=== PATIENT | male | born 1940 | race Caucasian/White ===

== ENCOUNTER 2017-06-30 13:01 | Emergency (ER) | payer MEDICARE ==
[2017-06-30 13:43] VITALS: BP 137/62
--- NOTE | 2017-07-06 09:45 | UC ---
Robb Hayden Angela, scribed for Nereida Vizcaino MD on 06/30/17 at 1349 . Ear Complaint HPI - HPI Summary HPI Summary: This pt is a 76 y/o male accompanied by his c/o decreased hearing from both ears progressively worse x several days. Has baseline hx [place] and tinnitus , but he reports that this feels more c/w obstruction. Pt reports he believes he has cerumen in his ears and would like his ears to be flushed. He additionally c/o post nasal drip. Pt's criminal justice lawyer is Dr. Cobb. PCP: Dr. Hannon. PMHx: diabetes, HTN, afib. - History of Current Complaint Chief Complaint: UCEar Stated Complaint: PLUGGED EARS Time Seen by Provider: 06/30/17 13:34 Hx Obtained From: Patient Onset/Duration: Lasting Days Aggravating Factors: Other - cerumen - Allergies/Home Medications Allergies/Adverse Reactions: Allergies Allergy/AdvReac Type Severity Reaction Status Date / Time No Known Allergies Allergy Verified 06/30/17 13:43 Home Medications: Home Medications Metolazone 1 tab PO DAILY 06/30/17 [History Confirmed 06/30/17] PMH/Surg Hx/FS Hx/Imm Hx Previously Healthy: No Endocrine History: Diabetes Cardiovascular History: Hypertension, Other Other Cardiovascular History: Atrial fibrillation - Surgical History Surgical History: Yes Surgery Procedure, Year, and Place: R Hip replacement - Family History Known Family History: Positive: Cardiac Disease - father: CHF. Brother: [place], Hypertension, Diabetes - Mother - Social History Alcohol Use: None Substance Use Type: None Smoking Status (MU): Former Smoker - Immunization History Most Recent Influenza Vaccination: July 2016 Most Recent Tetanus Shot: unknown Most Recent Pneumonia Vaccination: In the past Review of Systems Constitutional: Negative Skin: Negative Eyes: Negative ENT: Other - decreased hearing of bilateral ears Respiratory: Negative - none new Cardiovascular: Negative - none new Gastrointestinal: Negative - no new issues from usual Motor: Negative Neurovascular: Negative Musculoskeletal: Negative, Arthralgia Neurological: Negative Psychological: Negative All Other Systems Reviewed And Are Negative: Yes Physical Exam Triage Information Reviewed: Yes Appearance: Well-Nourished, Obese Vital Signs: Initial Vital Signs Temp 97.7 F 06/30/17 13:37 Pulse 78 06/30/17 13:37 Resp 20 06/30/17 13:37 BP 137/62 06/30/17 13:37 Pulse Ox 96 06/30/17 13:37 Vital Signs Reviewed: Yes Eye Exam: Normal ENT: Positive: Other: - impacted cerumen in bilateral ears. Neck: Positive: Supple - supple for age Respiratory Exam: Normal Respiratory: Positive: Chest non-tender, Lungs clear, Normal breath sounds - poor full insp effort but bs clear as audible, No respiratory distress, No accessory muscle use Cardiovascular: Positive: No Murmur, Pulses Normal, Brisk Capillary Refill, Other: - Regular heart rate with irregular rhythm. Abdominal Exam: Normal Abdomen Description: Positive: Nontender, No Organomegaly, Soft Bowel Sounds: Positive: Present Musculoskeletal Exam: Normal Musculoskeletal: Positive: Strength Intact Neurological Exam: Normal - nonfocal, grossly intact Psychological Exam: Normal - conversing easily and appropriately Skin Exam: Normal - no visible or reported rash Ear Complaint Course/Dx - Course Course Of Treatment: Both ears flushed by RN, with patent view to TM's, both intact. Feels much better. R EAC mild redness / irriation, with small amount of remaining cerumen. + subj c/o local irritation - rx as below. F/u PCP per routine. Questions as posed answered to the best of my ability. - Differential Dx/Diagnosis Provider Diagnoses: Cerumen Impaction - bilat Discharge - Discharge Plan Condition: Stable Disposition: HOME Prescriptions: Neomyc/Polym/HC 1% OTIC SUSP* [Cortisporin Otic Susp 1%*] 4 drop RIGHT EAR TID # 1 btl Patient Education Materials: Cerumen Impaction (ED) Referrals: Hair Hannon MD [Primary Care Provider] - Additional Instructions: Please follow up with your primary care provider, Dr. Hannon. Seek medical attention for worse or new problems in the meantime. Watch out for ear infections. The documentation as recorded by the Robb hernandez Angela accurately reflects the service I personally performed and the decisions made by , Nereida Vizcaino MD.
== END 2017-06-30 14:56 | disposition home or self-care (01) ==
LOC: UCEAST 13:01
DX: H61.23 Impacted cerumen, bilateral (principal); R09.82 Postnasal drip; E11.9 Type 2 diabetes mellitus without complications; I10 Essential (primary) hypertension; I48.91 Unspecified atrial fibrillation; E66.9 Obesity, unspecified; Z96.641 Presence of right artificial hip joint; Z87.891 Personal history of nicotine dependence
CPT/HCPCS: 99213; G0463

== ENCOUNTER 2021-04-23 16:12 | Inpatient (IN) ==
[2021-04-23] MEDS ORDERED: Dextrose 50% Syringe 50 ml 25 GM/50 ML SYRINGE ONE (16:30)
[2021-04-23] MEDS ORDERED: Dextrose 50% Syringe 50 ml 25 GM/50 ML SYRINGE IV PUSH PRN (16:45)
[2021-04-23 17:00] LABS: ABS Basophils 0.1 10^3/ul (0-0.2); ABS Eosinophils 0.2 10^3/ul (0-0.6); ABS Lymphocytes 0.5 10^3/ul (1.0-4.8); ABS Monocytes 0.7 10^3/ul (0-0.8); ABS Neutrophils 8.4 10^3/ul (1.5-7.7); Eosinophil % 2.2 %; Hematocrit 34 % (42-52); Hemoglobin 10.8 g/dL (14.0-18.0); Lymphocyte % 4.9 %; Mean Corpuscular HGB Conc 32 g/dL (31-36); Mean Corpuscular Hemoglobin 29 pg (27-31); Mean Corpuscular Volume 90 fL (80-94); Mean Platelet Volume 8.9 fL (7.4-10.4); Nucleated Red Blood Cells % 0.1; Platelet Count 166 10^3/uL (150-450); Red Blood Count 3.81 10^6 /uL (4.18-5.48); Red Cell Distribution Width 19 % (10-15); White Blood Count 9.8 10^3/uL (3.5-10.8)
[2021-04-23 17:19] LABS: ALT 16 U/L (7-52); AST 30 U/L (13-39); Albumin 3.3 g/dL (3.2-5.2); Albumin/Globulin Ratio 1.1 (1-3); Alkaline Phosphatase 157 U/L (35-149); Anion Gap 5 mmol/L (2-11); Blood Urea Nitrogen 89 mg/dL (6-24); CO2 Carbon Dioxide 36 mmol/L (22-32); Calcium 9.6 mg/dL (8.6-10.3); Chloride 102 mmol/L (101-111); EGFR African American 21.1 (>60); EGFR Non-African American 17.4 (>60); Globulin 2.9 g/dL (2-4); Glucose 119 mg/dL (70-100); Potassium 4.1 mmol/L (3.5-5.0); Sodium 143 mmol/L (135-145); Total Protein 6.2 g/dL (6.4-8.9)
[2021-04-23 17:41] LABS: Troponin I 0.05 ng/mL (<0.03)
[2021-04-23 20:00] LABS: INR 4.81 (0.86-1.15)
[2021-04-23 21:24] LABS: Troponin I 0.06 ng/mL (<0.03)
[2021-04-23 21:59] LABS: C Reactive Protein 47.07 mg/L (<8.01)
[2021-04-23] MEDS: Nystatin TOP POWDER 15 GM BTL TOPICAL SCH (23:52)
[2021-04-24 00:52] LABS: Troponin I 0.07 ng/mL (<0.03)
[2021-04-24] MEDS ORDERED: Dextran 70/Hypromellose Tears Eye Drops 15 ml BTL (for Artificials Tears) BOTH EYES PRN (01:24)
[2021-04-24] MEDS: cefTRIAXone 1 gm/50 mL NS BAG 1 GM/50 ML BAG IVPB SCH (03:09)
[2021-04-24 03:35] LABS: Troponin I 0.07 ng/mL (<0.03)
[2021-04-24 06:15] LABS: INR 4.53 (0.86-1.15)
[2021-04-24 06:25] LABS: Anion Gap 8 mmol/L (2-11); Blood Urea Nitrogen 102 mg/dL (6-24); CO2 Carbon Dioxide 33 mmol/L (22-32); Calcium 9.7 mg/dL (8.6-10.3); Chloride 104 mmol/L (101-111); EGFR African American 19.9 (>60); EGFR Non-African American 16.5 (>60); Glucose 73 mg/dL (70-100); Potassium 4.3 mmol/L (3.5-5.0); Sodium 145 mmol/L (135-145)
[2021-04-24 06:31] LABS: Troponin I 0.06 ng/mL (<0.03)
[2021-04-24 06:36] LABS: ABS Basophils 0.1 10^3/ul (0-0.2); ABS Eosinophils 0.3 10^3/ul (0-0.6); ABS Lymphocytes 0.8 10^3/ul (1.0-4.8); ABS Monocytes 0.8 10^3/ul (0-0.8); ABS Neutrophils 7.1 10^3/ul (1.5-7.7); Eosinophil % 3.8 %; Hematocrit 38 % (42-52); Hemoglobin 11.4 g/dL (14.0-18.0); Lymphocyte % 8.7 %; Mean Corpuscular HGB Conc 30 g/dL (31-36); Mean Corpuscular Hemoglobin 28 pg (27-31); Mean Corpuscular Volume 92 fL (80-94); Mean Platelet Volume 9.5 fL (7.4-10.4); Platelet Count 175 10^3/uL (150-450); Red Blood Count 4.11 10^6 /uL (4.18-5.48); Red Cell Distribution Width 19 % (10-15); White Blood Count 9.1 10^3/uL (3.5-10.8)
[2021-04-24] MEDS ORDERED: NS 0.9% 500 ml BAG 500 ML IV ONE (06:57)
[2021-04-24] MEDS: Nystatin TOP POWDER 15 GM BTL TOPICAL SCH ×3 (10:20→23:05)
[2021-04-24] MEDS ORDERED: Furosemide 40 mg/4 ml IV VIAL IV SLOW PU ONE (11:43)
[2021-04-24] MEDS: Erythromycin OPTH OINT APPLIC OINT BOTH EYES SCH ×2 (16:10→23:07)
[2021-04-24] MEDS: Furosemide 40 mg/4 ml IV VIAL IV SLOW PU SCH (17:24)
[2021-04-25] MEDS: cefTRIAXone 1 gm/50 mL NS BAG 1 GM/50 ML BAG IVPB SCH (02:00)
[2021-04-25 05:34] LABS: INR 4.26 (0.86-1.15)
[2021-04-25 05:46] LABS: Anion Gap 7 mmol/L (2-11); Blood Urea Nitrogen 100 mg/dL (6-24); CO2 Carbon Dioxide 34 mmol/L (22-32); Calcium 9.5 mg/dL (8.6-10.3); Chloride 102 mmol/L (101-111); EGFR African American 20.6 (>60); Glucose 145 mg/dL (70-100); Potassium 4.7 mmol/L (3.5-5.0); Sodium 143 mmol/L (135-145)
[2021-04-25] MEDS: Furosemide 40 mg/4 ml IV VIAL IV SLOW PU SCH ×3 (10:06→17:36)
[2021-04-25] MEDS: Nystatin TOP POWDER 15 GM BTL TOPICAL SCH ×3 (10:06→19:55)
[2021-04-25] MEDS: Erythromycin OPTH OINT APPLIC OINT BOTH EYES SCH ×3 (10:07→19:56)
[2021-04-25 14:26] LABS: TSH Ultra Thyroid Stim Horm 1.86 mcIU/mL (0.34-5.60)
[2021-04-25 14:37] LABS: Vitamin B12 > 1450 pg/mL (180-914)
[2021-04-25 14:46] LABS: PCO2 Arterial 91 mmHg (35-45)
[2021-04-25 14:47] LABS: PO2 Arterial 52 mmHg (80-100)
[2021-04-25 14:57] LABS: ALT 17 U/L (7-52); AST 31 U/L (13-39); Albumin 3.3 g/dL (3.2-5.2); Albumin/Globulin Ratio 1.1 (1-3); Alkaline Phosphatase 168 U/L (35-149); Globulin 2.9 g/dL (2-4); Indirect Bilirubin 0.3 mg/dL (0.3-1.0); Total Protein 6.2 g/dL (6.4-8.9)
[2021-04-25 14:58] LABS: ABS Basophils 0.1 10^3/ul (0-0.2); ABS Eosinophils 0.2 10^3/ul (0-0.6); ABS Lymphocytes 0.5 10^3/ul (1.0-4.8); ABS Monocytes 0.9 10^3/ul (0-0.8); ABS Neutrophils 8.2 10^3/ul (1.5-7.7); Eosinophil % 1.8 %; Hematocrit 36 % (42-52); Lymphocyte % 4.8 %; Mean Corpuscular HGB Conc 30 g/dL (31-36); Mean Corpuscular Hemoglobin 28 pg (27-31); Mean Corpuscular Volume 92 fL (80-94); Mean Platelet Volume 9.1 fL (7.4-10.4); Platelet Count 152 10^3/uL (150-450); Red Blood Count 3.92 10^6 /uL (4.18-5.48); Red Cell Distribution Width 19 % (10-15); White Blood Count 9.8 10^3/uL (3.5-10.8)
[2021-04-25] MEDS ORDERED: Dextrose 50% Syringe 50 ml 25 GM/50 ML SYRINGE IV PUSH PRN (21:04)
[2021-04-26] MEDS: cefTRIAXone 1 gm/50 mL NS BAG 1 GM/50 ML BAG IVPB SCH (01:24)
[2021-04-26 05:02] LABS: ABS Basophils 0.1 10^3/ul (0-0.2); ABS Eosinophils 0.5 10^3/ul (0-0.6); ABS Lymphocytes 0.7 10^3/ul (1.0-4.8); ABS Neutrophils 7.5 10^3/ul (1.5-7.7); Eosinophil % 5.3 %; Hematocrit 34 % (42-52); Hemoglobin 10.5 g/dL (14.0-18.0); Lymphocyte % 6.9 %; Mean Corpuscular HGB Conc 31 g/dL (31-36); Mean Corpuscular Hemoglobin 28 pg (27-31); Mean Corpuscular Volume 91 fL (80-94); Mean Platelet Volume 9.1 fL (7.4-10.4); Nucleated Red Blood Cells % 0.1; Platelet Count 153 10^3/uL (150-450); Red Blood Count 3.74 10^6 /uL (4.18-5.48); Red Cell Distribution Width 19 % (10-15); White Blood Count 9.8 10^3/uL (3.5-10.8)
[2021-04-26 05:07] LABS: INR 3.56 (0.86-1.15)
[2021-04-26 05:17] LABS: Calcium 9.3 mg/dL (8.6-10.3); EGFR African American 20.8 (>60); EGFR Non-African American 17.2 (>60); Potassium 4.4 mmol/L (3.5-5.0)
[2021-04-26] MEDS: Erythromycin OPTH OINT APPLIC OINT BOTH EYES SCH ×3 (07:41→22:00)
[2021-04-26] MEDS: Nystatin TOP POWDER 15 GM BTL TOPICAL SCH ×3 (07:41→22:00)
[2021-04-26] MEDS: Furosemide 40 mg/4 ml IV VIAL IV SLOW PU SCH (07:41)
[2021-04-26 07:59] LABS: Magnesium 2.2 mg/dL (1.9-2.7); Phosphorus 6.2 mg/dL (2.5-5.0)
[2021-04-26 11:05] LABS: ABS Basophils 0.1 10^3/ul (0-0.2); ABS Eosinophils 0.4 10^3/ul (0-0.6); ABS Lymphocytes 0.4 10^3/ul (1.0-4.8); ABS Monocytes 0.8 10^3/ul (0-0.8); ABS Neutrophils 8.9 10^3/ul (1.5-7.7); Eosinophil % 4.1 %; Hematocrit 35 % (42-52); Hemoglobin 10.7 g/dL (14.0-18.0); Lymphocyte % 3.9 %; Mean Corpuscular HGB Conc 31 g/dL (31-36); Mean Corpuscular Hemoglobin 28 pg (27-31); Mean Corpuscular Volume 90 fL (80-94); Mean Platelet Volume 9.4 fL (7.4-10.4); Platelet Count 152 10^3/uL (150-450); Red Blood Count 3.86 10^6 /uL (4.18-5.48); Red Cell Distribution Width 19 % (10-15); White Blood Count 10.6 10^3/uL (3.5-10.8)
[2021-04-26 11:15] LABS: Activated Partial Thrombo Time 39.9 seconds (26.0-38.0); INR 3.17 (0.86-1.15)
[2021-04-26 11:35] LABS: EGFR African American 20.4 (>60); EGFR Non-African American 16.8 (>60)
[2021-04-26] MEDS ORDERED: Warfarin per PHARMACY **NOTE FOLLOW UP SCH (16:00)
[2021-04-26] MEDS: Warfarin DAILY REMINDER **NOTE FOLLOW UP SCH (16:14)
[2021-04-26] MEDS ORDERED: Furosemide 100 mg/10 ml IV VIAL ONE (16:18)
[2021-04-26] MEDS: Furosemide 100 mg/10 ml IV 100 MG in NS 0.9% 100 ml BAG 90 ML IV SCH ×2 (16:58→21:59)
[2021-04-26] MEDS ORDERED: Warfarin - No Order Today **NOTE FOLLOW UP ONE (17:00)
[2021-04-26] MEDS ORDERED: Lorazepam PYXIS KEY PRN (20:01)
[2021-04-26 20:03] LABS: Calcium 9.4 mg/dL (8.6-10.3); EGFR African American 21.1 (>60); EGFR Non-African American 17.4 (>60); Potassium 4.3 mmol/L (3.5-5.0)
[2021-04-26] MEDS: LORazepam 2 mg VIAL 1 ml IV PUSH PRN (20:30)
[2021-04-26] MEDS ORDERED: Heparin 5000 UNITS/ML 1 mL VIAL SUBCUT SCH (21:00)
[2021-04-26 21:45] LABS: PCO2 Arterial 66 mmHg (35-45); PO2 Arterial 87 mmHg (80-100)
[2021-04-27 00:01] LABS: Hematocrit 34 % (42-52); Hemoglobin 10.2 g/dL (14.0-18.0)
[2021-04-27 00:29] LABS: INR 3.09 (0.86-1.15)
[2021-04-27] MEDS: cefTRIAXone 1 gm/50 mL NS BAG 1 GM/50 ML BAG IVPB SCH (02:11)
[2021-04-27 05:07] LABS: ABS Basophils 0.1 10^3/ul (0-0.2); ABS Eosinophils 0.5 10^3/ul (0-0.6); ABS Lymphocytes 0.7 10^3/ul (1.0-4.8); ABS Monocytes 0.8 10^3/ul (0-0.8); ABS Neutrophils 7.6 10^3/ul (1.5-7.7); Eosinophil % 5.5 %; Hematocrit 33 % (42-52); Hemoglobin 10.2 g/dL (14.0-18.0); Lymphocyte % 6.8 %; Mean Corpuscular HGB Conc 31 g/dL (31-36); Mean Corpuscular Hemoglobin 28 pg (27-31); Mean Corpuscular Volume 91 fL (80-94); Mean Platelet Volume 9.5 fL (7.4-10.4); Platelet Count 153 10^3/uL (150-450); Red Blood Count 3.62 10^6 /uL (4.18-5.48); Red Cell Distribution Width 18 % (10-15); White Blood Count 9.8 10^3/uL (3.5-10.8)
[2021-04-27 05:15] LABS: INR 2.98 (0.86-1.15)
[2021-04-27 05:32] LABS: Calcium 9.3 mg/dL (8.6-10.3); EGFR African American 21.7 (>60); EGFR Non-African American 17.9 (>60); Magnesium 2.1 mg/dL (1.9-2.7); Phosphorus 5.6 mg/dL (2.5-5.0)
[2021-04-27] MEDS: Furosemide 100 mg/10 ml IV 100 MG in NS 0.9% 100 ml BAG 90 ML IV SCH ×2 (07:26)
[2021-04-27] MEDS: Erythromycin OPTH OINT APPLIC OINT BOTH EYES SCH ×3 (08:37→19:57)
[2021-04-27] MEDS: Nystatin TOP POWDER 15 GM BTL TOPICAL SCH ×3 (08:37→19:57)
[2021-04-27] MEDS: Warfarin DAILY REMINDER **NOTE FOLLOW UP SCH (17:46)
[2021-04-28] MEDS: cefTRIAXone 1 gm/50 mL NS BAG 1 GM/50 ML BAG IVPB SCH (03:25)
[2021-04-28 06:04] LABS: ABS Basophils 0.1 10^3/ul (0-0.2); ABS Eosinophils 0.6 10^3/ul (0-0.6); ABS Lymphocytes 0.7 10^3/ul (1.0-4.8); ABS Monocytes 0.8 10^3/ul (0-0.8); ABS Neutrophils 7.1 10^3/ul (1.5-7.7); Eosinophil % 6.9 %; Hematocrit 31 % (42-52); Hemoglobin 9.7 g/dL (14.0-18.0); Lymphocyte % 7.3 %; Mean Corpuscular HGB Conc 31 g/dL (31-36); Mean Corpuscular Hemoglobin 28 pg (27-31); Mean Corpuscular Volume 89 fL (80-94); Mean Platelet Volume 9.2 fL (7.4-10.4); Nucleated Red Blood Cells % 0.1; Platelet Count 160 10^3/uL (150-450); Red Blood Count 3.51 10^6 /uL (4.18-5.48); Red Cell Distribution Width 18 % (10-15); White Blood Count 9.3 10^3/uL (3.5-10.8)
[2021-04-28 06:22] LABS: INR 2.63 (0.86-1.15)
[2021-04-28 06:28] LABS: Calcium 9.4 mg/dL (8.6-10.3); EGFR African American 24.8 (>60); EGFR Non-African American 20.5 (>60); Magnesium 2.1 mg/dL (1.9-2.7)
[2021-04-28] MEDS: Nystatin TOP POWDER 15 GM BTL TOPICAL SCH ×3 (08:30→22:22)
[2021-04-28] MEDS: Erythromycin OPTH OINT APPLIC OINT BOTH EYES SCH ×3 (08:30→22:16)
[2021-04-28 13:17] LABS: Hematocrit 33 % (42-52); Hemoglobin 9.9 g/dL (14.0-18.0)
[2021-04-28] MEDS ORDERED: Phytonadione Oral Solution 5 MG/25 ML UDC PO ONE (18:52)
[2021-04-28 19:54] LABS: Hematocrit 32 % (42-52); Hemoglobin 10.1 g/dL (14.0-18.0)
[2021-04-28] MEDS: LORazepam 2 mg VIAL 1 ml IV PUSH PRN (20:25)
[2021-04-29] MEDS: cefTRIAXone 1 gm/50 mL NS BAG 1 GM/50 ML BAG IVPB SCH (04:23)
[2021-04-29 06:29] LABS: ABS Basophils 0.1 10^3/ul (0-0.2); ABS Eosinophils 0.2 10^3/ul (0-0.6); ABS Lymphocytes 0.5 10^3/ul (1.0-4.8); ABS Monocytes 0.8 10^3/ul (0-0.8); ABS Neutrophils 8.6 10^3/ul (1.5-7.7); Eosinophil % 2.3 %; Hematocrit 31 % (42-52); Hemoglobin 9.6 g/dL (14.0-18.0); Lymphocyte % 4.5 %; Mean Corpuscular HGB Conc 31 g/dL (31-36); Mean Corpuscular Hemoglobin 27 pg (27-31); Mean Corpuscular Volume 90 fL (80-94); Mean Platelet Volume 8.9 fL (7.4-10.4); Platelet Count 187 10^3/uL (150-450); Red Cell Distribution Width 18 % (10-15); White Blood Count 10.2 10^3/uL (3.5-10.8)
[2021-04-29 06:32] LABS: INR 2.02 (0.86-1.15)
[2021-04-29 06:44] LABS: Calcium 9.6 mg/dL (8.6-10.3); EGFR Non-African American 22.3 (>60); Potassium 4.3 mmol/L (3.5-5.0)
[2021-04-29] MEDS ORDERED: Polyethylene Glycol 3350 17 GM PACKET PO PRN (07:48)
[2021-04-29] MEDS: Erythromycin OPTH OINT APPLIC OINT BOTH EYES SCH ×3 (09:37→20:10)
[2021-04-29] MEDS: Nystatin TOP POWDER 15 GM BTL TOPICAL SCH ×3 (09:37→20:10)
[2021-04-29 11:24] LABS: PO2 Arterial 60 mmHg (80-100)
[2021-04-29 11:28] LABS: PCO2 Arterial 82 mmHg (35-45)
[2021-04-30 05:32] LABS: INR 1.67 (0.86-1.15)
[2021-04-30] MEDS: Erythromycin OPTH OINT APPLIC OINT BOTH EYES SCH ×3 (09:44→23:53)
[2021-04-30] MEDS: Nystatin TOP POWDER 15 GM BTL TOPICAL SCH ×3 (09:44→20:46)
[2021-05-01 05:03] LABS: ABS Basophils 0.1 10^3/ul (0-0.2); ABS Eosinophils 0.7 10^3/ul (0-0.6); ABS Lymphocytes 0.7 10^3/ul (1.0-4.8); ABS Monocytes 0.8 10^3/ul (0-0.8); ABS Neutrophils 8.1 10^3/ul (1.5-7.7); Hematocrit 30 % (42-52); Hemoglobin 9.3 g/dL (14.0-18.0); Lymphocyte % 6.3 %; Mean Corpuscular HGB Conc 31 g/dL (31-36); Mean Corpuscular Hemoglobin 28 pg (27-31); Mean Corpuscular Volume 91 fL (80-94); Mean Platelet Volume 9.2 fL (7.4-10.4); Nucleated Red Blood Cells % 0.1; Platelet Count 168 10^3/uL (150-450); Red Blood Count 3.33 10^6 /uL (4.18-5.48); Red Cell Distribution Width 19 % (10-15); White Blood Count 10.4 10^3/uL (3.5-10.8)
[2021-05-01 05:08] LABS: INR 1.54 (0.86-1.15)
[2021-05-01 05:18] LABS: Calcium 9.7 mg/dL (8.6-10.3); EGFR African American 32.9 (>60); EGFR Non-African American 27.2 (>60); Potassium 4.2 mmol/L (3.5-5.0)
[2021-05-01 05:27] LABS: PCO2 Arterial 78 mmHg (35-45); PO2 Arterial 46 mmHg (80-100)
[2021-05-01] MEDS: Erythromycin OPTH OINT APPLIC OINT BOTH EYES SCH ×3 (09:07→21:39)
[2021-05-01] MEDS: Nystatin TOP POWDER 15 GM BTL TOPICAL SCH ×3 (09:08→21:41)
[2021-05-01 14:29] LABS: ABS Basophils 0.1 10^3/ul (0-0.2); ABS Eosinophils 0.6 10^3/ul (0-0.6); ABS Lymphocytes 0.4 10^3/ul (1.0-4.8); ABS Monocytes 0.7 10^3/ul (0-0.8); ABS Neutrophils 8.6 10^3/ul (1.5-7.7); Hematocrit 32 % (42-52); Hemoglobin 9.7 g/dL (14.0-18.0); Lymphocyte % 4.3 %; Mean Corpuscular HGB Conc 30 g/dL (31-36); Mean Corpuscular Hemoglobin 28 pg (27-31); Mean Corpuscular Volume 91 fL (80-94); Mean Platelet Volume 9.6 fL (7.4-10.4); Platelet Count 172 10^3/uL (150-450); Red Blood Count 3.52 10^6 /uL (4.18-5.48); Red Cell Distribution Width 18 % (10-15); White Blood Count 10.4 10^3/uL (3.5-10.8)
[2021-05-02 05:27] LABS: ABS Basophils 0.1 10^3/ul (0-0.2); ABS Eosinophils 0.8 10^3/ul (0-0.6); ABS Lymphocytes 0.6 10^3/ul (1.0-4.8); ABS Monocytes 0.8 10^3/ul (0-0.8); ABS Neutrophils 8.3 10^3/ul (1.5-7.7); Eosinophil % 7.7 %; Hematocrit 30 % (42-52); Hemoglobin 9.1 g/dL (14.0-18.0); Lymphocyte % 5.7 %; Mean Corpuscular HGB Conc 30 g/dL (31-36); Mean Corpuscular Hemoglobin 27 pg (27-31); Mean Corpuscular Volume 90 fL (80-94); Mean Platelet Volume 9.3 fL (7.4-10.4); Nucleated Red Blood Cells % 0.1; Platelet Count 175 10^3/uL (150-450); Red Blood Count 3.33 10^6 /uL (4.18-5.48); Red Cell Distribution Width 19 % (10-15); White Blood Count 10.6 10^3/uL (3.5-10.8)
[2021-05-02 05:33] LABS: INR 1.68 (0.86-1.15)
[2021-05-02 05:48] LABS: Calcium 9.9 mg/dL (8.6-10.3); EGFR African American 37.3 (>60); EGFR Non-African American 30.8 (>60)
[2021-05-02] MEDS: Nystatin TOP POWDER 15 GM BTL TOPICAL SCH ×3 (09:30→22:30)
[2021-05-02] MEDS: Erythromycin OPTH OINT APPLIC OINT BOTH EYES SCH ×3 (09:30→22:31)
[2021-05-02 17:49] LABS: PCO2 Arterial 69 mmHg (35-45); PO2 Arterial 123 mmHg (80-100)
[2021-05-03 05:52] LABS: INR 2.05 (0.86-1.15)
[2021-05-03] MEDS: Nystatin TOP POWDER 15 GM BTL TOPICAL SCH ×2 (09:06→13:16)
[2021-05-03] MEDS: Erythromycin OPTH OINT APPLIC OINT BOTH EYES SCH ×2 (09:06→13:16)
[2021-05-03 14:03] VITALS: BP 145/71
== END 2021-05-03 16:10 | disposition home health service (06) | DRG 291 ==
LOC: MED 16:12 → ED 16:12 → ICU 04-25 15:14 → MEDTELE 04-27 23:52
PROVIDERS: ADMIT Hospitalist; ATTEND Hospitalist